=== PATIENT | male | born 1995 | race Hispanic/Latino ===

== ENCOUNTER 2025-04-16 12:52 | Emergency (ER) | payer BC ==
[~2025-04-16] VITALS: Ht 165.1 cm; Wt 73.6 kg
[2025-04-16 13:08] VITALS: PULSE 73; RESP 18; TEMP 98.3; O2SAT 99
== END 2025-04-16 13:30 | disposition home or self-care (01) ==
LOC: FSED 13:19
DX: R20.0 Anesthesia of skin (principal); S80.12XA Contusion of left lower leg, initial encounter; W20.8XXA Other cause of strike by thrown, projected or falling object, initial encounter; Y92.89 Other specified places as the place of occurrence of the external cause
CPT/HCPCS: 99284